=== PATIENT | male | born 1960 | race Caucasian/White ===

== ENCOUNTER 2017-12-21 09:46 | Day surgery (SDC) | payer OTHER, SELFPAY ==
[2017-12-21] VITALS (7 sets, daily range): BP systolic 103–130; BP diastolic 66–83; PULSE 49–56; RESP 16; TEMP 36.2–36.6; O2SAT 97–100; BMI 28.1
--- NOTE | 2017-12-21 10:59 | H&P.OPEN ---
Past Medical/Surgical History - Planned Operation Planned Operative Procedure/s: cscope open access Date of Operative Procedure: 12/21/17 Permit Signed: No S.O.S: No Is This Patient Having a Total Joint: No - Previous Hospitalizations/Surgeries HX Hospitalizations: No HX of Surgeries: wisdom teeth. right leg fx as child Any Problems With Anesthesia: No You/Your Family Experience Fever (Hyperthermia) With Anes: No - adopted Cholinesterase deficiency: No - Cardiovascular Hx Chest Pain within Last 2 months: No Hx of Irregular Heartbeat and/or Afib: No Hx Heart Attack: No Hx Congestive Heart Failure: No Hx Rheumatic Fever: No Hx Hypertension: No Hx Internal Defibrillator: No Hx Pacemaker: No Hx Cardiac Catheterization: No Hx Cardiac Surgery/Stents/Etc.: No Hx Stress Test: No HX Edema: No Hx Pain in Legs when Walking/Leg Cramps: No - Respiratory Chronic Cough: No HX of Shortness of Breath: No Hoarseness: No Hx Chronic Obstructive Pulmonary Disease (COPD): No Hx Asthma: No Hx Emphysema: No Hx Sleep Apnea: No Hx Oxygen Use at Home: No Hx Respiratory Tract Infection/Cold (presently): No Do You Snore Loudly (louder than talking or can be heard): Yes Do You Often Feel Tired/ Fatigued/ Sleepy Dring Daytime?: No Has Anyone Observed You Stop Breathing During Sleep?: No Result (for STOP score): Negative Hx Smoking: No Smoking Status: Never smoker - Gastrointestinal Hx Gastroesophageal Reflux: No Hx Gastrointestinal Disorders: No Hx Gastrointestinal Bleed: No Hx Ulcer: No Hx Hiatal Hernia: No Difficulty Chewing/Swallowing: No Recent Onset of Swallowing Problems: No Special diet followed at home: No Hx Unplanned Weight Loss of 20#: No HX Unplanned Weight Gain of 20#: No - Neurological Hx Seizures: No HX Syncope/Blackout Spells/Unconsciousness: No Hx CVA/Stroke: No Hx Transient Ischemic Attacks (TIA): No Hx Multiple Sclerosis: No Hx Parkinson's Disease: No Hx Head/Neck Injury: No Hx Headaches: No Hx Back Injury/Pain: No Recent Onset of Speech Difficulty: No Restless Legs: No Does patient have nerve stimulator: No Patient instructed to have device shut off: No Rep notified?: No - Blood Disorder Hx Leukemia: No Bleeding Tendencies: No Hx Deep Vein Thrombosis: No Hx High Cholesterol: No Blood Transmitted Disease: No Hx Hepatitis: No Hx Cirrhosis: No Hx Anemia: No Hx Blood Disorders: No - Genitourinary Hx Renal Disease: No - Musculoskeletal Hx Arthritis: No Hx Rheumatoid Arthritis: No Hx Gout: No Recent Onset of an Orthopedic Problem: No - Endocrine Hx Diabetes: No Thyroid Disease: No Hx Steroid Therapy: No - Psycho/Social Hx Substance Use: No Hx Alcohol Use: No Hx Anxiety: No Hx Depression: No Mental Illness: No Hx Dementia: No - Miscellaneous Hx Cancer: No Recent Exposure to Contagious Disease: No Active MRSA: No Hx of C-Diff: No Any Loose Teeth: No Additional information pertinent to anesthesia:: limited rom right knee Allergies No Known Allergies Allergy (Verified 12/19/17 09:43) - Discharge Is Pt Admitted From a [facility], or a Nursing Home: No Who Could Help: After D/C, Where Do you Plan to Go: Return Home - Physical Exam General: Alert, Oriented x3, Cooperative Neck: No JVD Lungs: Normal air movement Cardiovascular: Regular rate, Regular Rhythm Abdomen: Soft, Non Tender, Non-Distended Vital Signs Temp Pulse Resp BP Pulse Ox 97.9 F 53 L 16 130/83 H 100 12/21/17 10:02 12/21/17 10:02 12/21/17 10:02 12/21/17 10:02 12/21/17 10:02 Oxygen Delivery Method Room Air Weight: 185 lb 6.54 oz Body Mass Index (BMI) 28.1 Assessment/Plan All Active Problems (Last Updated 11/22/17 @ 09:10 by Monique Harris) Abrasion of other part of head, initial encounter (Acute) Abrasion of throat, initial encounter (Acute) Abrasion of front wall of thorax (Acute) 57-year-old male for screening colonoscopy 1. Patient reports no abdominal pain or blood in his stool. He has no family history of colon cancer. He has never had a colonoscopy in the past. 2. I explained endoscopy in detail to the patient. I explained the risks including but not limited to stroke or heart attack with anesthesia, perforation of the GI tract, bleeding, infection. I explained that any of these could necessitate further emergency surgery. The patient understands and all questions were answered sufficiently. The patient wishes to proceed with procedure. Misbah Olivera MD Pager: [facility] [address] [place] [address], [address] [place] [address] Office: Surgery Risks - Colonoscopy Risks Include but are not Limited To: Risks include but are not limited to: Bleeding, perforation requiring further surgery, inability to complete colonoscopy requiring barium enema.
--- NOTE | 2017-12-21 11:27 | OP.ENDO_ITS ---
Patient Name: Clemente Ford Procedure Date: 12/21/2017 11:03 AM Date of : 1960 Age: 57 Procedure: Colonoscopy Indications: Screening for colorectal malignant neoplasm Providers: Misbah Olivera MD Referring MD: Misbah Olivera MD Medicines: Monitored Anesthesia Care Patient Profile: Last Colonoscopy: none. The patient's first colonoscopy is today. Complications: No immediate complications. Procedure: Pre-Anesthesia Assessment: - Prior to the procedure, a History and Physical was performed, and patient medications and allergies were reviewed. The patient's tolerance of previous anesthesia was also reviewed. The risks and benefits of the procedure and the sedation options and risks were discussed with the patient. All questions were answered, and informed consent was obtained. Prior Anticoagulants: The patient has taken no previous anticoagulant or antiplatelet agents. After reviewing the risks and benefits, the patient was deemed in satisfactory condition to undergo the procedure. After I obtained informed consent, the scope was passed under direct vision. Throughout the procedure, the patient's blood pressure, pulse, and oxygen saturations were monitored continuously. The colonoscope was introduced through the anus and advanced to the cecum, identified by appendiceal orifice and ileocecal valve. The colonoscopy was performed without difficulty. The patient tolerated the procedure well. The quality of the bowel preparation was good. Scope In: 11:09:41 AM Scope Withdrawal Time 0 hours 7 minutes 13 seconds Scope Out: 11:22:33 AM Total Procedure Duration Time 0 hours 12 minutes 52 seconds Findings: The perianal and digital rectal examinations were normal. The entire examined colon appeared normal on direct and retroflexion views. Impression: - The entire examined colon is normal on direct and retroflexion views. - No specimens collected. Recommendation: - Discharge patient to home. - Resume previous diet. - Continue present medications. - Repeat colonoscopy in 10 years for screening purposes. Procedure Code(s): --- Professional --- G0121, Colorectal cancer screening; colonoscopy on individual not meeting criteria for high risk Diagnosis Code(s): --- Professional --- Z12.11, Encounter for screening for malignant neoplasm of colon CPT copyright 2017 [employer]. All rights reserved. The codes documented in this report are preliminary and upon placement secretary review may be revised to meet current compliance requirements. Misbah Olivera MD 12/21/2017 11:26:51 AM This report has been signed electronically. Number of Addenda: 0 Note Initiated On: 12/21/2017 11:03 AM
== END 2017-12-21 12:14 | disposition home or self-care (01) ==
LOC: EN 09:48 → AC 09:49
PROVIDERS: Visit Provider Surgery
PROC: 0DJD8ZZ Inspection of Lower Intestinal Tract, Via Natural or Artificial Opening Endoscopic (ICD-10-PCS; CPT 45378; principal; 2017-12-21 10:55)
DX: Z12.11 Encounter for screening for malignant neoplasm of colon (principal)
CPT/HCPCS: 45378; J7120

== ENCOUNTER 2018-01-28 22:15 | Emergency (ER) | payer OTHER, SELFPAY ==
[2018-01-28 22:16] VITALS: BP 120/81; PULSE 98; RESP 16; TEMP 36.9; O2SAT 95; BMI 27.3
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
--- NOTE | 2018-01-28 22:47 | ED.DEP ---
ED Disposition - Plan for ED Patient: Chief Complaint: Wound Instructions: ED Abrasion Referrals: Care Physician,No Primary [Primary Care Provider] -
--- NOTE | 2018-01-28 23:04 | ED.RN ---
PT GIVEN DISCHARGE INSTRUCTIONS AND VERBALIZES UNDERSTANDING AND DENIES ANY FURTHER QUESTIONS. PT WOUNDS CLEANED WITH SHUR CLEAN AND WATER. BACITRACIN APPLIED. PT TO FOLLOW UP WITH CORPORATE CARE.
== END 2018-01-28 23:07 | disposition home or self-care (01) ==
LOC: ED 22:59
PROVIDERS: Emergency Provider Emergency Medicine
DX: S50.812A Abrasion of left forearm, initial encounter (principal); S00.81XA Abrasion of other part of head, initial encounter; W50.4XXA Accidental scratch by another person, initial encounter; Y93.9 Activity, unspecified; Y92.9 Unspecified place or not applicable
CPT/HCPCS: 99282

== ENCOUNTER → 2018-09-12 | Outpatient (CLI) | payer OTHER, SELFPAY ==
[2018-05-27 08:12] VITALS: BMI 29.3
--- NOTE | 2018-09-12 07:37 | RAD_ITS ---
STUDY: X-RAY - RIGHT KNEE REASON FOR EXAM: Male, 58 years old. TECHNIQUE: view(s) of the knee. COMPARISON: None. FINDINGS: There is marked narrowing of the medial compartment of the knee joint due to osteoarthritis. There is also posterior osteoarthritis of the patellofemoral joint. Old healed fracture of the distal femur. Loose bodies noted within the posterior aspect of the joint space as well as in the suprapatellar region. RAD/Knee 3 Views IMPRESSION: Moderately severe osteoarthritis, medial compartment of the knee joint with loose bodies. Osteoarthritis of the patellofemoral joint Electronically Signed: Modesta Majano, at 11:23 EDT Tel , Service support ,
== END | disposition home or self-care (01) ==
LOC: RAD 07:36
PROVIDERS: Family Provider Internal Medicine; PCP Internal Medicine; Referring Provider Internal Medicine; Visit Provider Internal Medicine
DX: M25.561 Pain in right knee (principal)
CPT/HCPCS: 73562

== ENCOUNTER → 2018-11-19 | Outpatient (REF) | payer OTHER, SELFPAY ==
[2018-11-19 08:14] VITALS: BMI 29.3
[2018-11-19 12:16] LABS: Color, Urine Yellow (Yellow); Glucose, Dipstick Normal (Normal); Ketone-Dipstick Negative (Negative); Leukocyte Esterase-Dipstick Negative /ul (Negative); Nitrite-Dipstick Negative (Negative); Occult Blood-Urine Negative /ul (Negative); Protein-Dipstick Negative (Negative); Specific Gravity, Urine 1.015 (1.002-1.030); Urine Bilirubin Dipstick Negative (Negative); Urine Clarity Clear (Clear); Urine Urobilinogen Normal (Normal)
[2018-11-19 12:20] LABS: Absolute Lymphocyte Count 1.55 X10^3/uL (0.83-4.51); Absolute Neutrophil Count 2.2 X10^3/uL (2.0-7.7); Basophil# 0.01 X10^3/uL; Basophil% 0.2 % (0-1); Eosinophils% 2.3 % (0-5); Hematocrit 41.6 % (40-54); Hemoglobin 13.6 g/dL (13.0-16.5); Lymphocyte # 1.55 X10^3/ul; Lymphocyte % 35.1 % (19-41); Mean Corp Hgb Conc 32.7 g/dL (32-36); Mean Corpuscular Volume 94.8 fL (80-94); Mean Platelet Vol. 10.1 fl (6.2-12.0); Monocyte% 11.3 % (0-10); NRBC Flagged by Analyzer 0 % (0-5); Neutrophil # 2.24 X10^3/uL (2.7-7.7); Neutrophil % 50.9 % (47-70); Platelet Count 168 K/mm3 (150-450); RBC Distribution Width CV 11.9 % (11.6-14.6); RBC Distribution Width SD 41.6 fl (35.1-43.9); Red Blood Count 4.39 M/mm3 (4.6-6.2); White Blood Count 4.4 K/mm3 (4.4-11.0)
[2018-11-19 12:41] LABS: AST(SGOT) 19 U/L (15-37); Alanine Aminotransfer ALT/SGPT 28 U/L (16-61); Albumin, Serum 3.5 g/dL (3.2-5.0); Alkaline Phosphatase 110 U/L (45-117); Anion Gap 5 (5-15); BUN 21 mg/dL (7-18); BUN/Creat Ratio 28.5 RATIO (10-20); Bilirubin, Direct 0.09 mg/dL (0.00-0.30); Calcium,Total 8.4 mg/dL (8.5-10.1); Chloride 111 mmol/L (98-107); Cholesterol 163 mg/dL (200); Creatinine, Serum 0.74 mg/dL (0.70-1.30); EST Glomerular Filtration Rate 116 mL/min (>60); Est Glom Filt Rate - Afr Amer 140 mL/min (>60); Globulin 3.5 g/dL (2.2-4.2); Glucose 96 mg/dL (74-106); High Density Lipoprotein 39 mg/dL; LDH 171 U/L (87-241); Phosphorus 2.7 mg/dL (2.5-4.9); Potassium 4.2 mmol/L (3.5-5.1); Sodium Level 142 mmol/L (136-145); Triglycerides 58 mg/dL; Uric Acid 5.3 mg/dL (3.5-7.2); Very Low Density Lipoprotein 12 mg/dL (5-40)
== END | disposition home or self-care (01) ==
LOC: EMPH 08:27
PROVIDERS: Family Provider Internal Medicine; PCP Internal Medicine
DX: Z00.00 Encounter for general adult medical examination without abnormal findings (principal)

== ENCOUNTER → 2019-11-21 07:47 | Outpatient (CLI) | payer OTHER, SELFPAY ==
[2019-11-07 07:10] VITALS: BMI 29.3
[2019-11-21 09:35] LABS: PSA,Total - Annual Screen 0.47 ng/mL (0.00-4.00)
== END ==
PROVIDERS: PCP Internal Medicine; Referring Provider Nurse Practitioner Family; Visit Provider Nurse Practitioner Family
DX: Z00.00 Encounter for general adult medical examination without abnormal findings (principal); Z12.5 Encounter for screening for malignant neoplasm of prostate
CPT/HCPCS: 36415; 84153; 84443; G0103

== ENCOUNTER → 2019-12-17 15:07 | Outpatient (CLI) | payer OTHER, SELFPAY ==
[2019-12-17 14:14] VITALS: BMI 29.3
--- NOTE | 2019-12-17 15:08 | VDLE_ITS ---
Reason For Study: Swelling RIGHT GSV is normal. CFV is compressible, spontaneous, phasic, competent and demonstrates normal augmentation. FV is compressible, spontaneous, phasic, competent and demonstrates normal augmentation. POP V is compressible, spontaneous, phasic, competent and demonstrates normal augmentation. T/P Trunk is compressible. PTV is compressible. RT PerV is compressible. Procedure Exam performed in department. A preliminary report was called and/or faxed to [facility]. Interpretation Summary Deep veins of the right lower extremity are patent and compressible segmentally. There is no evidence of right lower extremity deep vein thrombosis. Valvular competence appears intact within the proximal deep venous system on the right . The right great saphenous vein appears patent and compressible segmentally. Ordering Physician: Atilio Rodarte Referring Physician: Diane Gipson Performed By: Pina Easley RVT and Student
== END ==
PROVIDERS: PCP Internal Medicine; Referring Provider Nurse Practitioner Family; Visit Provider Nurse Practitioner Family
DX: M79.89 Other specified soft tissue disorders (principal)
CPT/HCPCS: 93971

== ENCOUNTER → 2020-01-06 10:31 | Outpatient (CLI) | payer OTHER, SELFPAY ==
[2020-01-06 10:04] VITALS: BMI 31.9
[2020-01-06 12:14] LABS: Absolute Lymphocyte Count 1.84 X10^3/uL (0.83-4.51); Absolute Neutrophil Count 2.7 X10^3/uL (2.0-7.7); Basophil# 0.02 X10^3/uL; Basophil% 0.4 % (0-1); Eosinophil# 0.18 X10^3/uL; Eosinophils% 3.4 % (0-5); Hemoglobin 13.3 g/dL (13.0-16.5); Lymphocyte # 1.84 X10^3/ul (4.0); Mean Corp Hgb Conc 33.3 g/dL (32-36); Mean Corpuscular Hgb 31.4 pg (27.0-32.0); Mean Corpuscular Volume 94.3 fL (80-94); Mean Platelet Vol. 10.2 fl (6.2-12.0); Monocyte# 0.48 X10^3/uL; Monocyte% 9.1 % (0-10); NRBC Flagged by Analyzer 0 % (0-5); Neutrophil # 2.72 X10^3/uL (2.7-7.7); Neutrophil % 51.9 % (47-70); Platelet Count 173 K/mm3 (150-450); RBC Distribution Width SD 41.8 fl (35.1-43.9); Red Blood Count 4.24 M/mm3 (4.6-6.2); White Blood Count 5.3 K/mm3 (4.4-11.0)
[2020-01-06 12:32] LABS: ALB/GLOB Ratio 0.9 RATIO (0.9-2.4); AST(SGOT) 28 U/L (15-37); Alanine Aminotransfer ALT/SGPT 42 U/L (16-61); Albumin, Serum 3.4 g/dL (3.2-5.0); Alkaline Phosphatase 113 U/L (45-117); Anion Gap 4 (5-15); BUN 22 mg/dL (7-18); BUN/Creat Ratio 25.3 RATIO (10-20); Calcium,Total 8.2 mg/dL (8.5-10.1); Chloride 112 mmol/L (98-107); Creatinine, Serum 0.87 mg/dL (0.70-1.30); EST Glomerular Filtration Rate 95 mL/min (>60); Est Glom Filt Rate - Afr Amer 115 mL/min (>60); Globulin 3.6 g/dL (2.2-4.2); Glucose 102 mg/dL (74-106); Potassium 3.5 mmol/L (3.5-5.1); Sodium Level 144 mmol/L (136-145)
== END ==
PROVIDERS: PCP Internal Medicine; Referring Provider Nurse Practitioner Family; Visit Provider Nurse Practitioner Family
DX: Z01.818 Encounter for other preprocedural examination (principal)
CPT/HCPCS: 36415; 80053; 85025

== ENCOUNTER → 2020-01-15 16:26 | Outpatient (CLI) | payer OTHER, SELFPAY ==
[2019-12-17 14:14] VITALS: BMI 29.3
[2020-01-06 10:04] VITALS: BMI 31.9
--- NOTE | 2020-01-15 16:35 | CT_ITS ---
CT of the right lower extremity without contrast INDICATION: Preop knee arthroplasty, May toe procedure. TECHNIQUE: Multiple thin section axial CT images of the right lower extremity were obtained through the hip joint, knee joint, and ankle joint without the administration of intravenous contrast and filmed in bone windows. Furthermore, multiple sagittal and coronal reconstructions were performed. FINDINGS: No abnormal soft tissue mass, lymphadenopathy, fluid collection. No acute fracture or dislocation. No lytic or blastic lesions. Examination of the hip joint demonstrates mild joint space narrowing with a prominent lateral spur the roof of acetabulum consistent with mild arthrosis. Examination the knee joint demonstrates severe joint space narrowing, subchondral sclerosis, and osteophyte formation the medial compartment consistent with severe arthrosis. Moderate arthrosis of the lateral and patellofemoral compartments. Multiple calcified bodies. Examination the ankle joint is normal. IMPRESSION: Severe knee arthrosis, preop knee arthroplasty. Electronically Signed: Arvin Blue MD at 7:47 EDT Tel , Service support , CT/Extremity Lower without Contra
== END ==
PROVIDERS: PCP Internal Medicine; Referring Provider Specialist; Visit Provider Specialist
DX: M21.161 Varus deformity, not elsewhere classified, right knee (principal)
CPT/HCPCS: 73700

== ENCOUNTER 2020-02-04 12:03 | Observation (INO) | payer OTHER, SELFPAY ==
[2019-12-17 14:14] VITALS: BMI 29.3
[2020-01-06 10:04] VITALS: BMI 31.9
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
--- NOTE | 2020-01-26 09:28 | EKG12_ITS ---
Test Reason : PREOP Blood Pressure : / mmHG Vent. Rate : 051 BPM Atrial Rate : 051 BPM P-R Int : 130 ms QRS Dur : 092 ms QT Int : 444 ms P-R-T Axes : 025 016 022 degrees QTc Int : 409 ms Sinus bradycardia Otherwise normal ECG Confirmed by LUDIVINA PRAKASH, DOUG ([id number]), city editor MERT MONGE ([id number]) on 01/27/2020 10:56:32 AM Referred By: Girma Gamble Confirmed By:DOUG FLORENCE MD
[2020-02-04] VITALS (9 sets, daily range): BP systolic 111–145; BP diastolic 68–90; PULSE 58–83; RESP 16–18; TEMP 36.3–37.1; O2SAT 95–100; BMI 30.7
[2020-02-04] MEDS: Celecoxib 200 MG Capsule 400 MG PO (11:11)
[2020-02-04] MEDS: Gabapentin 600 MG Tablet PO (11:11)
[2020-02-04] MEDS: Acetaminophen 500 MG Tablet 1000 MG PO ×2 (11:11→21:51)
[2020-02-04] MEDS: Scopolamine 1mg/72hr Patch 1 PATCH TRANSDERM. (11:12)
[2020-02-04] MEDS: Lactated Ringers 1,000 ML 999 ML IV (11:26)
[2020-02-04 11:45] LABS: Bedside Glucose 76 mg/dL (70-110)
[2020-02-04] MEDS: Cefazolin 2 GM in 0.9% Normal Saline 100 ML IV (12:01)
[2020-02-04] MEDS: dexAMETHasone 10 MG/ML Vial IV (12:15)
[2020-02-04] MEDS: Lactated Ringers 1,000 ML 75 ML IV (13:15)
--- NOTE | 2020-02-04 14:18 | OP.PCM_ITS ---
Report of Operation Date of Procedure: 02/04/20 Pre-Operative Diagnosis: Right knee posttraumatic osteoarthritis Post-Operative Diagnosis: Right knee posttraumatic osteoarthritis Surgery/Procedure Performed:: Right invasive robotic total knee replacement Description of Surgical Findings:: Stable knee with good patella tracking hypercil core transformer assembler: Cory Sanchez Type of Anesthesia:: Spinal Anesthesiologist: Sarmad Bueno Special Medications: 2 g Ancef, 1 g TXA at incision, 1 g TXA closure, 10 mg Decadron, joint cocktail (5 mg Duramorph, 30 mL of 0.5% Ropivicaine, 1000 units of epinephrine, 30 mg of Toradol) Specimen's removed: Bony cuts Estimated Blood Loss (mL): 75 Fluids Replaced: 1200 mL crystalloid Description of Procedure: Implants used: 1. [place] size 4 triathlon cruciate retaining distal femoral press-fit component 2. Tyson size 5 press-fit tritanium tibial baseplate 3. Tyson X3 11 mm PS polyethylene 4. [place] X3 35 mm asymmetric patella Brief history operative indications: 59-year-old M with history of right knee osteoarthritis and previous femoral shaft fracture treated nonoperatively. Patient had chronic varus nonunion with recurvatum. With radiographic findings with loss of joint space, osteophyte formation and subchondral sclerosis. Failed conservative measures as mentioned in the H&P. Discussion of total knee arthroplasty as well as risk and benefits were discussed the patient including but not limited to blood loss, DVTs, PEs, neurovascular damage, general risk of anesthesia including loss of life, and stiffness or instability were discussed with patient. Patient demonstrated understanding and was able to sign informed consent. Procedure: On the date of procedure patient's right lower extremity was marked in the preoperative area. The patient was then taken back to the operating room where the patient was placed on the table in the supine position. All bony prominences were identified a well-padded. Anesthesia assumed control of the C-spine and airway and remained controlled throughout the remainder of the procedure. A tourniquet was placed on the right upper thigh and the leg was prepped in a sterile fashion. The surgeon then scrubbed at this time .Upon reentering the room right lower extremity was draped in a standard orthopedic fashion. A timeout was then called and everyone agreed upon the side, the site, the procedure to be performed, patient's identity and antibiotics given. Esmarch bandage was used to exsanguinate the extremity and the tourniquet was placed up to 250 mmHg with the knee in flexion. A midline skin incision was made and sharp dissection was taken down through skin subcutaneous tissue and fat. The standard medial parapatellar incision was made and the patella was subluxed laterally. An Appropriate deep MCL release was done and the fat pad was resected. Our attention was then directed to the patella. The patella was everted and a flat resection was made. The knee was then flexed up in 2 femoral pins were placed inside the incision and 2 tibial pins were placed outside the incision in the medial tibia bicortically. Once this was completed the 2 checkpoints in the femur and tibia were placed. Knee was then flexed up and the bony landmarks were registered. Once this was completed knee was taken through range of motion and manually stressed allowing us to a plan for an appropriate tibial cut. The robotic arm was brought into the field sterilely and checkpoint and saw were registered. Based on the patient's deformity the tibial cut was made in 2 degrees varus. At this time the tensioner was then placed in the joint and ligament tension was checked at 90 degrees and full extension. Based on the patient's ligamentous tension appropriate adjustments were made to the operative plan and ligament releases were done. Once we were happy with our operative plan with balanced flexion and extension gaps our attention was directed to the femur. The robot was brought into the field sterilely and registered. Posterior condylar cuts, anterior chamfer cuts and anterior cuts were appropriately made for a size 4 femur. When these were completed the saws were switched out in the distal femoral and posterior chamfer cuts were made. Protecting the soft tissue throughout this time. A size 5 tibial base plate was selected. the knee was flexed to 90 degrees and the soft tissues and posterior osteophytes were removed from the joint. 40 cc of the periarticular injection was injected into the posterior medial corner of the joint. The appropriate trials were then placed on the femur and tibia. A trial polyethylene was trialed to ensure proper balancing and stability of the knee. The appropriate tibial internal rotation was then marked with a bovie. Our attention was then directed to the patella. The lug holes were drilled and t he patella trial was placed. Patellar tracking was checked and deemed appropriate. Once we were happy lug holes were drilled for the femur and trial components were removed. the tibia was subluxed and pinned into place and the keel was punched and drilled appropriately. Final components were verified and opened, and cement was mixed in a vacuum. [employer] Simplex cement was used. The wound was copiously irrigated with normal saline. When the cement was ready the components were impacted into place starting with the tibia, based on the fit of the femur we did also cement the femur femur and finally cementing the patella. The trial poly component was placed and the knee was placed in full extension. All excess cement was removed in the process. Once the cement had cured the tracking, alignment and balance were verified and a size 11 mm PS polyethylene component was placed. Once the final components were placed an Irrisept lavage was performed and the wound was copiously irrigated with normal saline solution and the periarticular injection was given. The wound was closed in a layer sy fashion using #1 vicryl interrupted sutures for the arthrotomy, 2-0 interrupted Vicryl suture for the subcuticular layer and daina for final skin closure. A sterile compressive dressing was then placed. The patient was then awakened from anesthesia, transferred to the [facility] and transferred to the PACU for recovery. Post op plan DVT ppx: ASA 81mg BID, thigh high compression stockings Follow up: in office in 2 weeks for wound check PT: to start POD #0 at hospital, outpatient PT should be arranged. My physician [employer] assistant principal was a vital part of this case. He was important in appropriate retraction during the case, and protection of soft tissues during bony cuts. His intimate knowledge of the case and my steps aided in safe and expedient completion of the procedure as well as appropriate position of the leg during the case. He was also vital in assisting with closure under my direct supervision. Due to the complexity of this case robotic arm was used to assist in the surgery to improve accuracy and clinical outcomes. - Complications No intraoperative complications - Admit VTE Documentation VTE Present on Admission: No VTE Mechan Device Prophylaxis: SCD's, Thigh High YVETTE Hose VTE Pharm Prophylaxis ordered?: Yes
--- NOTE | 2020-02-04 15:00 | RAD_ITS ---
STUDY: X-RAY - RIGHT KNEE REASON FOR EXAM: Male, 59 years old. POST OP TECHNIQUE: 2 view(s) of the knee. COMPARISON: Comparison is made with prior study dated 09/12/2018. FINDINGS: Stable deformity of the distal femoral diaphysis in keeping with old fracture. Normal visualized proximal tibia and fibula. Normal proximal tibiofibular articulation. The patient is status post total knee replacement. There is good alignment. Postoperative soft tissue changes. RAD/Knee 1 or 2 Views IMPRESSION: Status post total knee replacement. There is good alignment. Postoperative soft tissue changes. Electronically Signed: Marlo Alvarado, at 15:13 EST , Service support ,
[2020-02-04] MEDS: Ensure Surgery 237 ML LIQUID PO (17:50)
[2020-02-04] MEDS: Aspirin 81 MG TAB.CHEW PO (17:50)
[2020-02-04] MEDS: Famotidine 20 MG Tablet PO (17:50)
[2020-02-04] MEDS: 0.9% Saline Lock 10 ML Syringe IV (17:50)
[2020-02-04] MEDS: Lactated Ringers 1,000 ML 125 ML IV (19:58)
[2020-02-04] MEDS: Cefazolin 1 GM/50 ML BAG IV (20:08)
[2020-02-04] MEDS: Senna/Docusate Sodium 1 Tablet 2 TABLET PO (21:51)
[2020-02-05 00:19] VITALS: BP 130/78; PULSE 61; RESP 17; TEMP 37.1; O2SAT 94
[2020-02-05 04:45] VITALS: BP 126/58; PULSE 60; RESP 16; TEMP 37.2; O2SAT 94
[2020-02-05] MEDS: Cefazolin 1 GM/50 ML BAG IV (04:56)
[2020-02-05] MEDS: Acetaminophen 500 MG Tablet 1000 MG PO (05:01)
[2020-02-05 06:03] LABS: Hematocrit 36.5 % (40-54); Mean Corp Hgb Conc 32.9 g/dL (32-36); Mean Corpuscular Hgb 30.8 pg (27.0-32.0); Mean Corpuscular Volume 93.8 fL (80-94); Mean Platelet Vol. 10.2 fl (6.2-12.0); Platelet Count 167 K/mm3 (150-450); RBC Distribution Width CV 11.9 % (11.6-14.6); RBC Distribution Width SD 41.1 fl (35.1-43.9); Red Blood Count 3.89 M/mm3 (4.6-6.2); White Blood Count 14.9 K/mm3 (4.4-11.0)
[2020-02-05 06:22] LABS: Anion Gap 6 (5-15); BUN 16 mg/dL (7-18); BUN/Creat Ratio 17.8 RATIO (10-20); Calcium,Total 7.9 mg/dL (8.5-10.1); Chloride 110 mmol/L (98-107); EST Glomerular Filtration Rate 91 mL/min (>60); Est Glom Filt Rate - Afr Amer 111 mL/min (>60); Estimated Creatinine Clearance 84.44 ml/min; Glucose 151 mg/dL (74-106); Potassium 3.9 mmol/L (3.5-5.1); Sodium Level 140 mmol/L (136-145)
[2020-02-05] MEDS: Aspirin 81 MG TAB.CHEW PO (07:43)
[2020-02-05] MEDS: Famotidine 20 MG Tablet PO (07:43)
[2020-02-05] MEDS: Senna/Docusate Sodium 1 Tablet 2 TABLET PO (07:43)
[2020-02-05 08:10] VITALS: BP 126/76; PULSE 65; RESP 18; TEMP 36.5; O2SAT 98
--- NOTE | 2020-02-05 08:58 | PCM.PN.ORT ---
Subjective: The patient was sitting in bedside chair upon examination. Patient denies any chest pain, shortness of breath, dizziness, lightheadedness, nausea or vomiting, or calf pain. Pain is controlled on medications. No adverse overnight events. Overall patient is doing well and pain is been very limited. He did receive a block perioperatively and I discussed with him that this can wear off over 24 hours. He did voice understanding agreement. Overall patient is doing well and wishes to go home today. Objective: Vital signs stable and afebrile. Patient is able to plantarflex and dorsiflex actively. Sensation is intact to light touch to saphenous, sural, superficial and deep peroneal, and tibial distribution. Pin site dressing distally has drainage with proximal dressing clean dry and intact. Main dressing is clean dry and intact. Negative Homans bilaterally, negative signs and symptoms of DVT. - Physical Exam Vitals/I&O's: Vital Signs Temp Pulse Resp BP Pulse Ox 97.7 F L 65 18 126/76 H 98 02/05/20 08:10 02/05/20 08:10 02/05/20 08:10 02/05/20 08:10 02/05/20 08:10 Oxygen Flow Rate (L/min) 6 Oxygen Delivery Method Room Air Weight: 91.6 kg Body Mass Index (BMI) 30.7 Intake and Output for Last 24 Hours 02/03/20 02/04/20 02/05/20 23:59 23:59 23:59 Intake Total 2087.58 / 2087.58 2869.17 / 2869.17 Output Total 2500 / 2500 Balance 2087.58 / 2087.58 369.17 / 369.17 General: Alert, Oriented x3, Cooperative, No apparent distress Microbiology Past 72 Hours 02/03/20 08:35 Interface Orders SARS-CoV-2 Antigen (Rapid) - Final Laboratory Results 02/04/20 11:38: POC Glucose 76 02/05/20 05:40: WBC 14.9 H, RBC 3.89 L, Hgb 12.0 L, Hct 36.5 L, MCV 93.8, MCH 30.8, MCHC 32.9, RDW Std Deviation 41.1, RDW Coeff of Sona 11.9, Plt Count 167, MPV 10.2 02/05/20 05:40: Sodium 140, Potassium 3.9, Chloride 110 H, Carbon Dioxide 24.0, Anion Gap 6, BUN 16, Creatinine 0.90, Estim Creat Clear Calc 84.44, Est GFR (MDRD) Af Amer 111, Est GFR (MDRD) Non-Af 91, BUN/Creatinine Ratio 17.8, Glucose 151 H, Calcium 7.9 L Current Medications Acetaminophen (Acetaminophen 500 Mg Tablet) 1,000 mg PO Q8 [facility] Last Admin: 02/05/20 05:01 Dose: 1,000 mg Documented by: Aspirin (Aspirin 81 Mg Tab.Chew) 81 mg PO BIDCM [facility] Last Admin: 02/05/20 07:43 Dose: 81 mg Documented by: Cholecalciferol (Cholecalciferol (Vit D3) 1,000 Unit (25mcg)) 1,000 unit PO DAILY [facility] Last Admin: 02/05/20 07:43 Dose: 1,000 unit Documented by: Enteral Nutritional Formula (Ensure Surgery 237 Ml Liquid) 237 ml PO TIDCM [facility] Last Admin: 02/05/20 07:46 Dose: Not Given Documented by: Famotidine (Famotidine 20 Mg Tablet) 20 mg PO DAILY [facility] Last Admin: 02/05/20 07:43 Dose: 20 mg Documented by: Insulin Human Lispro (Insulin Lispro 100 Unit/Ml Insuln.Pen) 1 - 6 unit SC Q4H PRN PRN; Protocol PRN Reason: BG>/= 180, SEE PROTOCOL Ketorolac Tromethamine (Ketorolac 15 Mg/Ml Vial) 15 mg IV Q6H PRN PRN PRN Reason: Pain Score 1-5 Stop: 02/06/20 07:18 Meloxicam (Meloxicam 7.5 Mg Tablet) 7.5 mg PO BID [facility] Morphine Sulfate (Morphine 2 Mg/Ml Syringe) 2 - 4 mg IV Q2H PRN PRN PRN Reason: Pain Score 6-10 Morphine Sulfate (Morphine 4 Mg/Ml Syringe) 2 - 4 mg IV Q2H PRN PRN PRN Reason: Pain Score 6-10 Ondansetron HCl (Ondansetron 4 Mg/2 Ml Vial) 4 mg IV Q8H PRN PRN PRN Reason: NAUSEA Oxycodone HCl (Oxycodone 5 Mg Tablet) 5 - 10 mg PO Q4H PRN PRN PRN Reason: Pain Score 4-10 Promethazine HCl (Promethazine 25 Mg/Ml Syringe) 12.5 mg IM Q6H PRN PRN; Protocol PRN Reason: NAUSEA/VOMITING Senna/Docusate Sodium (Senna/Docusate Sodium 1 Tablet) 2 tablet PO BID NICK Last Admin: 02/05/20 07:43 Dose: 2 tablet Documented by: Sodium Chloride (0.9% Saline Lock 10 Ml Syringe) 10 - 40 ml IV UD PRN PRN Reason: SALINE FLUSH Last Admin: 02/04/20 17:50 Dose: 10 ml Documented by: Medical Necessity - Tobacco Use Smoking Status: Never smoker Tobacco Use: Non-smoker Assessment/Plan 1. S/P right total knee arthroplasty POD #1 2. Continue Pain Medications: Tylenol, meloxicam, oxycodone 3. DVT Prophylaxis: Take 81 mg aspirin twice daily for 4 weeks postoperatively for DVT prophylaxis 4. PT/OT: Weightbearing as tolerated 5. H & H: 12.0/36.5, asymptomatic. Postoperative anemia secondary to acute blood loss from surgery without any intraoperative complications 6. Reactive leukocytosis: Currently 14.9, afebrile. Patient did receive Decadron intraoperatively 7. Encouraged Incentive Spirometry 8. Disposition: Orthopedically stable, plan will be for discharge home today as long as patient tolerates physical therapy and pain is well controlled. Prescriptions will be E scribed to [facility] pharmacy. He will follow-up per postop instructions. Patient has outpatient physical therapy established. I have reviewed the [place] Automated Rx Reporting System (OARRS) report for this patient for refill pattern and other prescriber involvement as part of the appropriate surveillance for the provision of acute and chronic controlled medications. The report was requested and reviewed on the date of this entry and was considered in the prescribing process.
--- NOTE | 2020-02-05 09:05 | PCM.DC.TKR ---
Discharge Diet: No Restrictions Discharge Activity: May Not Drive May shower in (days): 1 - Dressing must be intact to skin. During dressing away from water Ice area for (Minutes): 20 - Every 1-2 hours while awake Weight Bearing Status: Weight bearing as tolerated Elevate: Operative Extremity Additional Activity Instructions:: Wear elastic stockings for 2 weeks after your surgery. Call your doctor if your incision/area has: Continuous Slow Oozing, Sudden Increased Bleeding, Increased Pain/ Swelling, Increased Redness, Foul Smelling Discharge Call your doctor if you observe: Fever of 101 or Higher, Coldness, Increased Pain, Numbness or Tingling, Change in Color, Calf discomfort, Uncontrolled pain Remove Dressing in (days):: 4 - Okay to remove on February 09, 2020 Additional Instructions: Follow orthopedic postop instructions Allergies/Adverse Reactions: Allergies No Known Allergies Allergy (Verified 01/20/20 09:29) Medications to take at Discharge Cholecalciferol (VIT D3) [Vitamin D3] 1,000 unit PO DAILY 01/20/20 Acetaminophen [Tylenol] 1,000 mg PO Q8 #100 tab 02/05/20 Aspirin [Aspirin, Baby] 81 mg PO BIDCM #60 tab 02/05/20 Famotidine [Pepcid] 20 mg PO DAILY #30 tab 02/05/20 Meloxicam [Mobic] 7.5 mg PO BID #60 tab 02/05/20 Oxycodone [Oxyir] 5 - 10 mg PO Q4H PRN PRN 5 Days #60 tablet 02/05/20 Senna/Docusate Sodium [Senokot-S] 2 tab PO BID #14 tab 02/05/20 The following prescriptions were given: Aspirin [Aspirin, Baby] 81 mg PO BIDCM #60 tab Transmission Status: Pending to [facility] Meloxicam [Mobic] 7.5 mg PO BID #60 tab Transmission Status: Pending to [facility] Oxycodone [Oxyir] 5 - 10 mg PO Q4H PRN PRN 5 Days #60 tablet PRN Reason: Pain Score 4-10 Transmission Status: Sent to [facility] Famotidine [Pepcid] 20 mg PO DAILY #30 tab Transmission Status: Pending to [facility] Senna/Docusate Sodium [Senokot-S] 2 tab PO BID #14 tab Transmission Status: Pending to [facility] Acetaminophen [Tylenol] 1,000 mg PO Q8 #100 tab Transmission Status: Pending to [facility] Primary Care Physician: Diane Gipson MD [Primary Care Provider] - Test Results: Test results from this visit will be discussed in further detail at your follow-up appointment, if applicable. Please Follow Up With: Pratib[facility] When: 02/09/20 @ 4:00 with Navdeep Please Follow Up With: Cory Sanchez PA-C When: 02/18/20 @ 10:30 am
--- NOTE | 2020-02-05 10:10 | CASEMGMT ---
RN WOLFGANG Face to Face with patient for initial transition planning/care coordination assessment. RN CM introduced self and role at [facility]. Patient sitting in chair, alert and oriented. Patient willing to participate in assessment and is able to answer all questions appropriately. Care providers, pharmacy, and demographics verified. Patient wishes to discharge home and is setup with [facility] for [facility]. Patient states he has no further needs or concerns at this time. CM to follow for discharge planning needs that may arise. PCP: Brandan Specialists: laurent Gamble Pharmacy: [facility] Retail Insurance: [facility] Prescription Benefit: yes Living Will/HPOA: none LNOK: Living Arrangements: patient lives with in a 2 story home with bed and bath setup on first floor. Patient states he is independent at home prior to surgery. Transportation: daughter DME/HHC: Patient states he has walker, grab bars, and shower chair at home. Patient is setup with [facility] for outpatient therapy starting Sunday. Disposition Plan: Patient to discharge home with outpatient therapy, family support, and follow-up plans in place. Pina ZAFAR, RN, CM
[2020-02-05] MEDS: oxyCODONE 5 MG Tablet PO (10:18)
[2020-02-05 11:45] VITALS: BP 124/79; PULSE 59; RESP 16; TEMP 36.5; O2SAT 98
--- NOTE | 2020-02-05 12:28 | PHA.DC.MR ---
Pharmacy Service has performed discharge medication reconciliation for this patient. The patient's discharge medication list was reviewed for discrepancies and discrepancies were resolved. Home Medications Cholecalciferol (VIT D3) [Vitamin D3] 1,000 unit PO DAILY 01/20/20 Acetaminophen [Tylenol] 1,000 mg PO Q8 #100 tab 02/05/20 Aspirin [Aspirin, Baby] 81 mg PO BIDCM #60 tab 02/05/20 Famotidine [Pepcid] 20 mg PO DAILY #30 tab 02/05/20 Meloxicam [Mobic] 7.5 mg PO BID #60 tab 02/05/20 Oxycodone [Oxyir] 5 - 10 mg PO Q4H PRN PRN 5 Days #60 tab 02/05/20 Senna/Docusate Sodium [Senokot-S] 2 tab PO BID #14 tab 02/05/20
== END 2020-02-05 12:17 | disposition home or self-care (01) ==
LOC: SDC 15:04 → MS3 15:04
PROVIDERS: Anesthesiology; Admitting Provider Specialist; PCP Internal Medicine; Referring Provider Specialist; Visit Provider Specialist
PROC: 0SRC0JZ Replacement of Right Knee Joint with Synthetic Substitute, Open Approach (ICD-10-PCS; CPT 27447; principal; 2020-02-04 12:30)
DX: M17.31 Unilateral post-traumatic osteoarthritis, right knee (principal); Z20.828 Contact with and (suspected) exposure to other viral communicable diseases
CPT/HCPCS: 01214; 27130; 64447; S2900; 36415; 73560; 80048; 82962; 83735; 85027; 87081; 87426; 93005; 96361; 96365; 96366; 97110; 97162; 97166; 99218; 99251; C1776; C9803; J7120; A4216; G0378; G0379; G0463

== ENCOUNTER → 2020-02-09 12:35 | Outpatient (CLI) | payer OTHER, SELFPAY ==
[2020-02-04 16:21] VITALS: BMI 30.7
--- NOTE | 2020-02-09 12:37 | VDLE_ITS ---
Reason For Study: PAIN RIGHT GSV is normal. CFV is compressible, spontaneous, phasic, competent and demonstrates normal augmentation. FV is compressible, spontaneous, phasic, competent and demonstrates normal augmentation. POP V is compressible, spontaneous, phasic, competent and demonstrates normal augmentation. T/P Trunk is compressible. PTV is compressible. RT PerV is compressible. Procedure This is a venous duplex using B-mode, color flow and spectral Doppler. Exam performed in department. The exam was diagnostic. A preliminary report was called and/or faxed to Dr. Bhavani Gamble @ [phone] @1:15 pm. Interpretation Summary Deep veins of the right lower extremity are patent and compressible segmentally. There is no evidence of right lower extremity deep vein thrombosis. Valvular competence appears intact within the proximal deep venous system on the right . The right great saphenous vein appears patent and compressible segmentally. Ordering Physician: Girma Gamble Referring Physician: Diane Gipson Performed By: Promise Osuna, RDCS, RVT
== END ==
PROVIDERS: PCP Internal Medicine; Referring Provider Specialist; Visit Provider Specialist
DX: M79.661 Pain in right lower leg (principal)
CPT/HCPCS: 93971

== ENCOUNTER → 2020-02-24 12:03 | Outpatient (CLI) | payer OTHER, SELFPAY ==
[2020-02-18 08:26] VITALS: BMI 30.7
--- NOTE | 2020-02-24 12:06 | VDLE_ITS ---
Reason For Study: Pain RIGHT GSV is normal. CFV is compressible, spontaneous, phasic, competent and demonstrates normal augmentation. FV is compressible, spontaneous, phasic, competent and demonstrates normal augmentation. POP V is compressible, spontaneous, phasic, competent and demonstrates normal augmentation. T/P Trunk is compressible. PTV is compressible. RT PerV is compressible. Procedure This is a venous duplex using B-mode, color flow and spectral Doppler. Exam performed in department. A preliminary report was called and[facility]. Interpretation Summary Deep veins of the right lower extremity are patent and compressible segmentally. There is no evidence of right lower extremity deep vein thrombosis. Valvular competence appears intact within the proximal deep venous system on the right . The right great saphenous vein appears patent and compressible segmentally. Ordering Physician: Cory Sanchez Referring Physician: Diane Gipson Performed By: Pina Easley RVT
== END ==
PROVIDERS: PCP Internal Medicine; Referring Provider Physician Assistant Surgical; Visit Provider Physician Assistant Surgical
DX: M79.661 Pain in right lower leg (principal)
CPT/HCPCS: 93971